=== PATIENT | female | born 1970 | race Caucasian/White ===

== ENCOUNTER 2016-06-20 01:55 | Emergency (ER) | payer SELFPAY ==
--- NOTE | 2016-06-20 02:27 | EMERGENCY ROOM VISIT NOTE ---
History Report prepared by Dana: Carlos Lyman Under the Supervision of: Dr. Crissy Ceja M.D. First contact with patient: 02:06 Chief Complaint: OVERDOSE (ACCIDENTAL) Stated Complaint: OVERDOSE History of Present Illness The patient is a 45 year old female who presents to the Emergency Room with complaints of accidental heroin overdose occurring today. The patient states that she is helping out a friend who is addicted to heroin. She was dumping out heroine into a toilet when some got on her hand. She wiped her nose with her hand without realizing that the heroine was there and accidentally inhaled some. She denies any history of drug use. She currently denies any pain. She denies fevers, chills, or any other complaints. Source of History: patient Onset: today Position: other (global) Symptom Intensity: No pain Quality: other (accidental heroin overdose ) Associated Symptoms: No chills, No fevers Review of Systems See HPI for pertinent positives & negatives. A total of 10 systems reviewed and were otherwise negative. Past Medical & Surgical Medical Problems: (1) No Known Active Medical Problems Family History Patient reports no known family medical history. Social History Smoking Status: Unknown if Ever Smoked Marital Status: Occupation Status: other Current/Historical Medications No Active Prescriptions or Reported Meds Allergies Coded Allergies: No Known Allergies (Unverified , 06/20/16) Physical Exam Vital Signs Date Time Temp Pulse Resp B/P Pulse Ox O2 Delivery O2 Flow Rate FiO2 06/20/16 04:48 89 20 112/72 100 06/20/16 03:12 95 18 123/89 93 Room Air 06/20/16 02:20 116 24 165/95 100 Room Air Physical Exam Vital signs reviewed. General: Disheveled 45-year-old female. No signs of trauma. HEENT: Mild scleral injection bilaterally, PERRLA, neck supple, dry mucous membranes. Cardiovascular: Regular rate and rhythm, no extra sounds. Pulmonary: Clear to auscultation bilaterally, normal work of breathing. Abdomen: Soft, nontender, nondistended, positive bowel sounds. Musculoskeletal: Upper and lower extremities atraumatic, no peripheral edema Skin: Warm, dry, no rash. Atraumatic. Neurologic: Verbal. Answers most questions appropriately, seems somnolent. Medical Decision & Procedures ED Course 0206: Past medical records reviewed. The patient was evaluated in room A12B. A complete history and physical examination was performed. The patient is refusing treatment due to concerns about the bill she will receive. She states that she does not have insurance currently. 0425: I reevaluated the patient who is resting comfortably. I discussed findings with her. She verbalized agreement of the treatment plan. She was discharged home to a sober friend. Medical Decision The differential diagnosis of the patient's presentation includes illicit drug use, alcohol intoxication, trauma, and dehydration. This patient was evaluated and appeared to be in no distress. The patient did receive Narcan prior to arrival. Per her account this was an accidental use of heroin. The patient states she is not a regular user. A friend did arrive at the patient's bedside however he appears to be intoxicated himself. After some observation, the patient seems to be stable. She did not require any additional Narcan. The patient was discharged to an [facility]. The patient is staying with friends and state [place] and has documentation of their address. The patient was advised to refrain from illicit substance abuse and excessive alcohol consumption. She will return to the ER for worsening of symptoms or any medical concerns. Impression Primary Impression: Accidental heroin overdose Scribe Attestation The scribe's documentation has been prepared under my direction and personally reviewed by me in its entirety. I confirm that the note above accurately reflects all work, treatment, procedures, and medical decision making performed by me. Departure Information Dispostion Home / Self-Care Prescriptions No Active Prescriptions or Reported Meds Referrals No Doctor, Assigned (PCP) Forms HOME CARE DOCUMENTATION FORM, IMPORTANT VISIT INFORMATION, WORK / SCHOOL INSTRUCTIONS Patient Instructions My [facility] Additional Instructions Diagnosis: Heroin overdose Drink plenty of clear fluids. Avoid illicit substances. Return to the ED for worsening of symptoms or any medical concerns. Problem Qualifiers Primary Impression: Accidental heroin overdose Encounter type: initial encounter Qualified Codes: T40.1X1A - Poisoning by heroin, accidental (unintentional), initial encounter
[2016-06-20 04:48] VITALS: BP 112/72; PULSE 89; O2SAT 100
== END 2016-06-20 04:51 | disposition home or self-care (01) ==
LOC: EDBD 01:55 → C.EDA 01:58
DX: T40.1X1A Poisoning by heroin, accidental (unintentional), initial encounter (principal)